=== PATIENT | female | born 1990 | race Caucasian/White ===

== ENCOUNTER 2016-08-04 21:27 | Inpatient (IN) ==
[2016-08-04 21:58] LABS: ALLEN TEST YES; BE -1.8 mmoll (-3.0-3.0); BLOOD TYPE ARTERIAL; DRAW SITE L RADIAL; METHB 1.4 % (0.0-1.5); O2(CT) 17.4 mL/dL (15.0-23.0); PCO2(98.6) 34 mmHg (35-45); PO2(98.6) 91 mmHg (60-100); SAMPLE BLOOD; SAO2 99.5 % (95.0-100.0); THB 12.8 g/dL (11.5-17.4); pH(98.6) 7.42 (7.35-7.45)
[2016-08-04 21:59] LABS: MODALITY ROOM AIR
[2016-08-04 22:43] LABS: MANUAL DIFF NEEDED? NO
--- NOTE | 2016-08-04 22:44 | PROVIDER DOCUMENTATION ---
HPI-Neurological Disorder - General Chief Complaint: Altered Mental Status Stated Complaint: SEIZURE Time Seen by Provider: 08/04/16 21:28 Source: patient Allergies/Adverse Reactions: Patient Allergies Allergy/AdvReac Type Severity Reaction Status Date / Time Penicillins AdvReac Unknown Verified 08/04/16 22:45 - History of Present Illness-Neuro Nature of Presenting Problem: Pt is a 26 y/o F brought to the ER by EMS for evaluation after she had a syncopal episode at work and awoke c paralysis to her LUE and LLE. Pt reports a R sided headache and is unsure if she hit her head. 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 Pt has a h/o narcolepsy and migraine headaches. Pt states that she remembers following the suspect then woke up on an ambulance gurney unable to move or feel her LUE and LLE. On arrival at the ER, pt is emotionally distraught and tearful. She was taken directly to CT for a CT head non-contrast and cervical spine. Dr. Suggs (ER MD) was made aware of pt's arrival and approved work up and plan of care for initial evaluation. Review of Systems - Adult - REVIEW OF SYSTEMS - ADULT Constitutional: reports: no symptoms reported. denies: chills, fatique Eyes: reports: no symptoms reported. denies: blurred vision, double vision Ears, Nose, Mouth & Throat: reports: no symptoms reported. denies: ear pain, nose pain, throat pain Cardiovascular: reports: no symptoms reported. denies: chest pain, orthopnea Respiratory: reports: no symptoms reported. denies: cough, shortness of breath Gastrointestinal: reports: no symptoms reported. denies: abdominal pain, nausea Genitourinary: reports: no symptoms reported. denies: dysuria, hematuria Musculoskeletal: reports: no symptoms reported. denies: joint pain, joint swelling Integumentary: reports: no symptoms reported. denies: hives, itching Neurological: reports: see HPI, headache/migraines, loss of balance, numbness, paresthesia, syncope Psychiatric: reports: no symptoms reported. denies: anxiety, emotional problems Endocrine: reports: no symptoms reported. denies: cold intolerance Hematologic/Lymphatic: reports: no symptoms reported. denies: blood clots, lymphedema Allergic/Immunologic: reports: no symptoms reported. denies: allergic reactions , food allergy, frequent infections All Other Systems: Reviewed and Negative Past History - Adult - PAST MEDICAL HISTORY-ADULT Review of Records: reports: Old Records Reviewed, Nursing Assessment Review, Medications Reviewed, Social history reviewed & non-contributory. Major Childhood Illnesses: reports: denies history Cardiovascular: reports: denies history Respiratory: reports: denies history Gastrointestinal: reports: denies history Obstetrical/Gynecological: reports: denies history Genitourinary: reports: denies history Musculoskeletal: reports: denies history Neurological: reports: denies history, other (narcolepsy) Psychiatric: reports: denies history Endocrine/Immune: reports: denies history Other Conditions: reports: denies history - PRIOR SURGERIES/PROCEDURES Surgical/Procedure History: reports: other (D&C) - IMMUNIZATION STATUS Childhood Immunizations: See Nurse Assessment Flu Vaccine: See Nurse Assessment - FAMILY HISTORY Family History: reviewed, not pertinent - SOCIAL HISTORY Smoking: denies Substance Use: none/never Alcohol Use Frequency: never Living Situation: family Physical Exam- Neurological - Physical Exam-Neuro Initial Vital Signs Reviewed: Yes General Appearance: alert, mild distress Eye Exam: bilateral eye: normal inspection, PERRL, EOMI HENMT: normocephalic/atraumatic, moist mucous membranes, normal ENT inspection Head Injury: tenderness (R parietal head). negative: Barragan's Sign, contusions , ecchymosis Neck: non-tender, full range of motion, supple Respiratory: chest non-tender, lungs clear, normal breath sounds Cardiovascular: normal peripheral pulses, regular rate, rhythm, no edema Abdominal Exam: normal bowel sounds, non tender, soft Lymphatic: no adenopathy Extremity: normal range of motion, non-tender, normal gait plate conditioner Exam: normal hearing, normal speech, PERRL. negative: abnormal speech, facial asymmetry, facial droop, facial paresthesias Motor/Sensory: weak motor strength LUE, weak motor strength LLE (drop arm test - pt was able to guide the direction of her arm dropping) Integumentary: normal color, normal turgor, warm/dry Psych/Mental Status: normal mood/affect, normal thought content, normal thought process - [place]ow Coma Scale Best Eye Response: (4) open spontaneously Best Verbal Response: (5) oriented Best Motor Response: (6) obeys commands Progress - PLAN OF CARE/RESULTS Progress/Plan/Lab Results: Vital Signs - 8 hr 08/04/16 21:35 08/05/16 00:23 Temperature 98.5 F Pulse Rate 68 100 H Respiratory Rate 16 22 Blood Pressure 141/87 132/81 O2 Sat by Pulse Oximetry 100 100 Laboratory Results - last 24 hr 08/04/16 08/04/16 08/04/16 21:31 22:10 22:10 WBC 8.34 RBC 4.58 Hgb 14.1 Hct 41.0 MCV 89.5 MCH 30.8 MCHC 34.4 RDW Std Deviation 12.3 Plt Count 235 MPV 9.2 Immature Gran % (Auto) 0.2 Neut % (Auto) 56.3 Lymph % (Auto) 33.3 [place] % (Auto) 9.5 H Eos % (Auto) 0.5 Baso % (Auto) 0.2 Immature Gran # (Auto) 0.02 Neut # (Auto) 4.69 Lymph # (Auto) 2.78 [place] # (Auto) 0.79 H Eos # (Auto) 0.04 Baso # (Auto) 0.02 PT INR PTT (Actin FS) Specimen Type ARTERIAL Sample Site L RADIAL pH 7.42 pCO2 34 L pO2 91 HCO3 23.5 Base Excess -1.8 Oxyhemoglobin 96.4 ABG O2 Sat (Calculated) 17.4 ABG O2 Saturation 99.5 ABG Carboxyhemoglobin 1.70 ABG Methemoglobin 1.4 Adolfo Test YES A-a O2 Difference 16.0 Total Hemoglobin 12.8 Lactate 0.80 Liter Flow 0.0 Blood Gas Modality ROOM AIR FiO2 % 21.0 Sodium Potassium Chloride Carbon Dioxide Anion Gap BUN Creatinine Estimated GFR/1.73 m2 BUN/Creatinine Ratio Glucose POC Glucose Calculated Osmolality Calcium Total Bilirubin AST ALT Alkaline Phosphatase Creatine Kinase Troponin T Total Protein Albumin Globulin Albumin/Globulin Ratio Plasma Lactate Urine Source Urine Color Urine Turbidity Urine pH Ur Specific [place] Urine Protein Ur Glucose (Stick) Ur Ketones (Stick) Urine Blood Urine Nitrite Urine Bilirubin Urobilinogen Dipstick Urine Leukocytes Urine WBC (Auto) Urine RBC (Auto) U Epithel Cells (Auto) Urine Bacteria (Auto) Urine Opiates Screen Ur Oxycodone Screen Ur Methadone, Qual Ur Barbiturates Screen Ur Phencyclidine Scrn Ur Amphetamines Screen U Benzodiazepines Scrn Urine Cocaine Screen U Cannabinoids Screen Plasma/Serum Ethyl Alc 08/04/16 08/04/16 08/04/16 22:10 22:10 22:10 WBC RBC Hgb Hct MCV MCH MCHC RDW Std Deviation Plt Count MPV Immature Gran % (Auto) Neut % (Auto) Lymph % (Auto) [place] % (Auto) Eos % (Auto) Baso % (Auto) Immature Gran # (Auto) Neut # (Auto) Lymph # (Auto) [place] # (Auto) Eos # (Auto) Baso # (Auto) PT 10.9 INR 1.04 PTT (Actin FS) 28.0 Specimen Type Sample Site pH pCO2 pO2 HCO3 Base Excess Oxyhemoglobin ABG O2 Sat (Calculated) ABG O2 Saturation ABG Carboxyhemoglobin ABG Methemoglobin Adolfo Test A-a O2 Difference Total Hemoglobin Lactate Liter Flow Blood Gas Modality FiO2 % Sodium 140 Potassium 3.7 Chloride 103 Carbon Dioxide 21 L Anion Gap 16 BUN 11 Creatinine 0.8 Estimated GFR/1.73 m2 > 60 BUN/Creatinine Ratio 14 Glucose 83 POC Glucose Calculated Osmolality 278 Calcium 9.3 Total Bilirubin 0.34 AST 12 ALT 9 L Alkaline Phosphatase 71 Creatine Kinase 55 Troponin T Total Protein 7.0 Albumin 4.1 Globulin 2.9 Albumin/Globulin Ratio 1.4 Plasma Lactate 1.4 Urine Source Urine Color Urine Turbidity Urine pH Ur Specific [place] Urine Protein Ur Glucose (Stick) Ur Ketones (Stick) Urine Blood Urine Nitrite Urine Bilirubin Urobilinogen Dipstick Urine Leukocytes Urine WBC (Auto) Urine RBC (Auto) U Epithel Cells (Auto) Urine Bacteria (Auto) Urine Opiates Screen Ur Oxycodone Screen Ur Methadone, Qual Ur Barbiturates Screen Ur Phencyclidine Scrn Ur Amphetamines Screen U Benzodiazepines Scrn Urine Cocaine Screen U Cannabinoids Screen Plasma/Serum Ethyl Alc 08/04/16 08/04/16 08/04/16 22:10 22:13 22:45 WBC RBC Hgb Hct MCV MCH MCHC RDW Std Deviation Plt Count MPV Immature Gran % (Auto) Neut % (Auto) Lymph % (Auto) [place] % (Auto) Eos % (Auto) Baso % (Auto) Immature Gran # (Auto) Neut # (Auto) Lymph # (Auto) [place] # (Auto) Eos # (Auto) Baso # (Auto) PT INR PTT (Actin FS) Specimen Type Sample Site pH pCO2 pO2 HCO3 Base Excess Oxyhemoglobin ABG O2 Sat (Calculated) ABG O2 Saturation ABG Carboxyhemoglobin ABG Methemoglobin Adolfo Test A-a O2 Difference Total Hemoglobin Lactate Liter Flow Blood Gas Modality FiO2 % Sodium Potassium Chloride Carbon Dioxide Anion Gap BUN Creatinine Estimated GFR/1.73 m2 BUN/Creatinine Ratio Glucose POC Glucose 68 L Calculated Osmolality Calcium Total Bilirubin AST ALT Alkaline Phosphatase Creatine Kinase Troponin T < 0.010 Total Protein Albumin Globulin Albumin/Globulin Ratio Plasma Lactate Urine Source CLEAN CATCH Urine Color STRAW Urine Turbidity CLEAR Urine pH 6.0 Ur Specific [place] 1.001 Urine Protein NEGATIVE Ur Glucose (Stick) NEGATIVE Ur Ketones (Stick) NEGATIVE Urine Blood NEGATIVE Urine Nitrite NEGATIVE Urine Bilirubin NEGATIVE Urobilinogen Dipstick NORMAL Urine Leukocytes NEGATIVE Urine WBC (Auto) <10 Urine RBC (Auto) <10 U Epithel Cells (Auto) <10 Urine Bacteria (Auto) NEGATIVE Urine Opiates Screen Ur Oxycodone Screen Ur Methadone, Qual Ur Barbiturates Screen Ur Phencyclidine Scrn Ur Amphetamines Screen U Benzodiazepines Scrn Urine Cocaine Screen U Cannabinoids Screen Plasma/Serum Ethyl Alc 08/04/16 22:45 WBC RBC Hgb Hct MCV MCH MCHC RDW Std Deviation Plt Count MPV Immature Gran % (Auto) Neut % (Auto) Lymph % (Auto) [place] % (Auto) Eos % (Auto) Baso % (Auto) Immature Gran # (Auto) Neut # (Auto) Lymph # (Auto) [place] # (Auto) Eos # (Auto) Baso # (Auto) PT INR PTT (Actin FS) Specimen Type Sample Site pH pCO2 pO2 HCO3 Base Excess Oxyhemoglobin ABG O2 Sat (Calculated) ABG O2 Saturation ABG Carboxyhemoglobin ABG Methemoglobin Adolfo Test A-a O2 Difference Total Hemoglobin Lactate Liter Flow Blood Gas Modality FiO2 % Sodium Potassium Chloride Carbon Dioxide Anion Gap BUN Creatinine Estimated GFR/1.73 m2 BUN/Creatinine Ratio Glucose POC Glucose Calculated Osmolality Calcium Total Bilirubin AST ALT Alkaline Phosphatase Creatine Kinase Troponin T Total Protein Albumin Globulin Albumin/Globulin Ratio Plasma Lactate Urine Source Urine Color Urine Turbidity Urine pH Ur Specific [place] Urine Protein Ur Glucose (Stick) Ur Ketones (Stick) Urine Blood Urine Nitrite Urine Bilirubin Urobilinogen Dipstick Urine Leukocytes Urine WBC (Auto) Urine RBC (Auto) U Epithel Cells (Auto) Urine Bacteria (Auto) Urine Opiates Screen NONE DETECTED Ur Oxycodone Screen NONE DETECTED Ur Methadone, Qual NONE DETECTED Ur Barbiturates Screen NONE DETECTED Ur Phencyclidine Scrn NONE DETECTED Ur Amphetamines Screen NONE DETECTED U Benzodiazepines Scrn NONE DETECTED Urine Cocaine Screen NONE DETECTED U Cannabinoids Screen NONE DETECTED Plasma/Serum Ethyl Alc Orders Category Date Time Status Cardiac Monitoring DIRECTED Care 08/04/16 21:31 Active Finger Stick Blood Sugar (ED) DIRECTED Care 08/04/16 21:31 Active Oxygen Therapy- ED Nursing DIRECTED Care 08/04/16 21:31 Active Saline Loc NOW Care 08/04/16 21:31 Active CHEST-PORTABLE [RAD] Stat Exams 08/04/16 21:31 Taken HEAD/C-SPINE W/O CONTRAST [CT] Stat Exams 08/04/16 21:31 Taken ABG [RESP] Routine Lab 08/04/16 21:31 Completed ALCOHOL BLOOD Stat Lab 08/04/16 22:10 Completed CBC WITH ELECTRONIC DIFF [HEME] Stat Lab 08/04/16 22:10 Completed CK PROFILE [SP CHEM] Stat Lab 08/04/16 22:10 Completed COMPREHENSIVE METABOLIC PANEL [CHEM] Stat Lab 08/04/16 22:10 Completed LACTATE, PLASMA [CHEM] Stat Lab 08/04/16 22:10 Completed PROTIME WITH INR [COAG] Stat Lab 08/04/16 22:10 Completed PTT [COAG] Stat Lab 08/04/16 22:10 Completed TROPONIN T Stat Lab 08/04/16 22:10 Completed URINALYSIS W/POSS RFLX CULT-1 [URINALYSIS] Stat Lab 08/04/16 22:45 Completed URINE DRUG SCREEN Stat Lab 08/04/16 22:45 Completed Aspirin Med 08/05/16 00:00 Discontinued 325 mg PO NOW ONE Diphenhydramine [Benadryl] Med 08/04/16 23:41 Discontinued 25 mg IV NOW ONE Prochlorperazine [Compazine] Med 08/04/16 23:41 Discontinued 10 mg IV NOW ONE Pulse Oximetry Stat Oth 08/04/16 21:31 Active EKG [EKG] Stat Ther 08/04/16 21:31 Ordered Result Diagrams: 08/04/16 22:10 08/04/16 22:10 - REASSESSMENT Reassessment #1 Time Reassessed: 23:43 (Dr. Suggs at bedside after reviewing imaging studies and labs. He examined pt and ordered compazine and benadryl to treat R sided headache. Plan to txfr to for MRI and neuro support. ) Reassessment #2 Time Reassessed: 00:01 (Presented pt to Dr. Qureshi ( Neurology), Dr. Suggs was at bedside c critical unstable pt. Relayed information to Dr. Suggs who agreed c plan to admit pt to hospitalist. ) Reassessment #3 Time Reassessed: 00:40 (Updated pt on plan of care. Pt and agree c admission. Pt states that her headache is resolved. ) - CONSULTS/PCP/HOSPITALIST Notification #1 *Consult/PCP/Hospitalist*: Dr. Qureshi ( Neurology) Time Discussed: 00:01 (Recommended admission to hospital and observation over night c MRI in the morning. Recommended not transferring the pt to . ) #2 Consult: Dr. Katz (Hospitalist) Time Discussed: 00:07 Reason/Comments: Will accept pt and see in the ER. Departure - Departure Time of Disposition Decision: 00:07 DIAGNOSIS: Stroke-like symptoms Disposition: ADMITTED INPATIENT 09 Certified Medical Emergency: Emergent Condition: Stable Referrals and Follow-Ups: None,PCP [Primary Care Provider] - Attestation - Physician/ DAVID Attestation Patient care was provided by Advanced Practice Provider:: Yes Advanced Practice Provider:: Alden Borrego Advanced Practice Provider documentation review:: The Mid-level provider documentation, treatment plan and medical decision making was reviewed by the physician who agrees with all treatment and medical decision making by the MLP. The physician spent face to face time with patient:: Yes Advanced Practice Provider documentation review:: The physician spent face to face time with this patient and agrees with all MLP documentation, treatment, and medical decision making by the MLP. See provider notes for further information. - NIH Stroke Scale NIH Type: Initial Evaluation Level of Consciousness: 0-Alert LOC Questions (ask month and age): 0-Answers Both Correctly Best Gaze (horizontal eye movement): 0-Normal Visual (use finger movement, counting or visual threat): 0-No Visual Loss Facial Palsy (show teeth or raise eyebrows & close eyes tght: 0-Symmetrical Movement Motor Function-left arm: 4-No Movement Motor Function-right arm: 0-Normal Motor Function-left le-No Movement Motor Function-right le-Normal Limb Ataxia(sgbdvy-ddui-strhat, or heel to carvajal): 0-No Ataxia Sensory(pin prick to face,arms,trunk,legs-compare side/side): 0-No Ataxia Best Language(name item/read sentence.Ex-Down to Earth): 0-No Aphasia Dysarthria(Pt read words or say words Ex.Mama,Tip-Top,Thanks: 0-Normal Articulation Modified [place] Score Criteria: 3-moderate disability
[2016-08-04 22:48] LABS: BASO% 0.2 % (0.0-0.8); EOS# 0.04 X1000 (0.0-0.7); EOS% 0.5 % (0.0-10.0); HEMOGLOBIN 14.1 g/dL (12.0-16.0); IMM GRAN# 0.02 X1000 (0.0-0.04); IMM GRAN% 0.2 % (0.0-0.5); LYMPH# 2.78 X1000 (1.2-3.4); LYMPH% 33.3 % (20.5-51.1); MCH 30.8 PG (27-31); MCHC 34.4 g/dL (33-37); MCV 89.5 FL (81-99); MONO# 0.79 X1000 (0.11-0.59); MONO% 9.5 % (1.7-9.3); MPV 9.2 FL (7.4-10.4); NEUT% 56.3 % (42.2-75.2); PLT 235 X1000 (130-400); RBC 4.58 XMIL (4.2-5.4)
[2016-08-04 23:02] LABS: INR 1.04; PROTIME 10.9 Seconds (9.2-11.7)
[2016-08-04 23:06] LABS: AGAP 16; ALBUMIN 4.1 g/dL (3.5-5.0); ALKALINE PHOSPHATASE 71 U/L (32-104); BUN 11 mg/dL (8-22); CALCIUM 9.3 mg/dL (8.8-10.2); CHLORIDE 103 mmol/L (98-107); CK PROFILE 55 U/L (24-173); COSMO 278; GOT 12 U/L (10-30); GPT 9 U/L (10-36); POTASSIUM 3.7 mmol/L (3.5-5.1); SODIUM 140 mmol/L (136-145); TCO2 21 mmol/L (25-35); TOTAL BILIRUBIN 0.34 mg/dL (0.20-1.00)
[2016-08-04 23:13] LABS: URINE CULTURE NEEDED? NO; URINE MICRO REVIEW NEEDED? NO; URINE SOURCE CLEAN CATCH
[2016-08-04 23:16] LABS: BILIRUBIN URINE NEGATIVE (NEGATIVE); BLOOD URINE NEGATIVE (NEGATIVE); COLOR STRAW; GLUCOSE URINE NEGATIVE (NEGATIVE); LEUKOCYTES URINE NEGATIVE (NEGATIVE); NITRITE URINE NEGATIVE (NEGATIVE); PROTEIN URINE NEGATIVE (NEGATIVE); SP GRAVITY URINE 1.001; TURBIDITY URINE CLEAR (CLEAR); UROBILINOGEN URINE NORMAL (NORMAL)
[2016-08-04 23:18] LABS: UR EPITHELIAL CELLS <10 /HPF (<10); URINE BACTERIA NEGATIVE /HPF; URINE RBC <10 /HPF (<10); URINE WBC <10 /HPF (<10)
[2016-08-04 23:25] LABS: UR AMPHETAMINES QUAL NONE DETECTED (NONE DETECT); UR BARBITUATES QUAL NONE DETECTED (NONE DETECT); UR BENZODIAZEPIN QUAL NONE DETECTED (NONE DETECT); UR CANNABINOIDS QUAL NONE DETECTED (NONE DETECT); UR COCAINE QUAL NONE DETECTED (NONE DETECT); UR METHADONE QUAL NONE DETECTED (NONE DETECT); UR OPIATES QUAL NONE DETECTED (NONE DETECT); UR OXYCODONE QUAL NONE DETECTED (NONE DETECT); UR PCP QUAL NONE DETECTED (NONE DETECT)
[2016-08-04] MEDS ORDERED: BENADRYL IV ONE (23:41)
[2016-08-04] MEDS ORDERED: COMPAZINE IV ONE (23:41)
[2016-08-05] MEDS ORDERED: ASPIRIN PO ONE
--- NOTE | 2016-08-05 05:05 | EKG Report ---
Test Performed on : 08/04/2016 10:50:25 PM Test Reason : SEIZURE Blood Pressure : / mmHG Vent. Rate : 058 BPM Atrial Rate : 058 BPM P-R Int : 180 ms QRS Dur : 076 ms QT Int : 420 ms P-R-T Axes : 059 090 031 degrees QTc Int : 412 ms Sinus bradycardia. Rightward axis Cannot rule out Anterior infarct , age undetermined Abnormal ECG No previous ECGs available Unconfirmed Result
[2016-08-05] MEDS ORDERED: COMPAZINE IV PRN (06:39)
[2016-08-05 07:38] LABS: MANUAL DIFF NEEDED? NO
[2016-08-05 07:43] LABS: BASO% 0.2 % (0.0-0.8); EOS# 0.04 X1000 (0.0-0.7); EOS% 0.6 % (0.0-10.0); HEMATOCRIT 39.5 % (37.0-47.0); HEMOGLOBIN 13.4 g/dL (12.0-16.0); LYMPH# 2.13 X1000 (1.2-3.4); LYMPH% 34.3 % (20.5-51.1); MCH 30.7 PG (27-31); MCHC 33.9 g/dL (33-37); MCV 90.4 FL (81-99); MONO# 0.51 X1000 (0.11-0.59); MONO% 8.2 % (1.7-9.3); NEUT% 56.7 % (42.2-75.2); PLT 223 X1000 (130-400); RBC 4.37 XMIL (4.2-5.4)
[2016-08-05 08:09] LABS: AGAP 12; BUN 10 mg/dL (8-22); CALCIUM 8.9 mg/dL (8.8-10.2); CHLORIDE 101 mmol/L (98-107); COSMO 274; POTASSIUM 4.2 mmol/L (3.5-5.1); SODIUM 138 mmol/L (136-145); TCO2 25 mmol/L (25-35)
--- NOTE | 2016-08-05 08:23 | Diag Imaging Result Document ---
PROCEDURE NAME: CHEST-PORTABLE - 08/04/2016 SINGLE FRONTAL RADIOGRAPH OF THE CHEST: COMPARISON: None available. FINDINGS: The lungs are grossly clear. There is no discrete pleural fluid collection or evidence of pneumothorax. The cardiomediastinal silhouette and upper airway are grossly unremarkable. IMPRESSION: No evidence of acute chest pathology.
--- NOTE | 2016-08-05 08:49 | Diag Imaging Result Document ---
PROCEDURE NAME: HEAD/C-SPINE W/O CONTRAST - 08/04/2016 CT OF THE HEAD WITHOUT CONTRAST: FINDINGS: There is no evidence of mass effect, bleed, or abnormal extra-axial fluid collection. Compared to 09/28/2015, the appearance of the brain has not changed significantly. The visualized paranasal sinuses are clear. The calvarium is intact. IMPRESSION: No acute intracranial disease. CT OF THE CERVICAL SPINE WITHOUT CONTRAST: There is no evidence of fracture or subluxation. There are no previous studies available for comparison. The facets are well aligned. There is no prevertebral soft tissue swelling. IMPRESSION: No evidence of acute bony disease.
--- NOTE | 2016-08-05 10:56 | HISTORY AND PHYSICAL ---
PRIMARY CARE PHYSICIAN: The patient reports that she does not have a primary care provider at this time and uses urgent care when needed. PSYCHIATRIST: The patient's psychiatrist is Dr. Stark. TIME: 99. CHIEF COMPLAINT: Altered mental status. HISTORY OF PRESENT ILLNESS: Ms. Lovell is a 26-year-old, female with a past medical history most notable for depression, migraines, narcolepsy, and seizures as a child. She presented to the ER [facility] with altered mental status after having a syncopal episode at work. The patient states that prior to this syncopal episode that she woke up with a headache this morning. She reports that the headache is on the right side of her head. She also reported that throughout the day that she noticed that when she would turn her head to the left or the right, she would have loss of vision for just a second or two. She also reported that she felt a tingly type feeling throughout her head as well. 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 Patient reports that she does not remember anything after her syncopal episode. The 1st thing she remembers is waking up in the ambulance. Upon our examination, she was alert, oriented to person, place, time, and situation. The patient also is having symptoms of paralysis in the left upper extremity and left lower extremity. Upon arrival to the ER, the patient was unable to move her left arm or left leg, and reported numbness and tingling in these 2 extremities as well. Upon our examination, the patient has regained some movement. She is able to move her arm slightly, wiggle her fingers, as well as wiggle her toes. She does still report some tingling and decreased sensation. She denies any visual changes at present. There is no facial droop noted. Her speech is clear. She is able to answer questions appropriately, though she does have weakness in the left upper extremity and left lower extremity. The patient denies any recent new medications or changes in her medications, though does report that she normally takes Lexapro every day for depression and has been out of this for the last 3 days. She also states that she takes trazodone at night for sleep, Klonopin as needed, and a control pill. The patient does report that she had seizures as a child but her last seizure was at age 10. She did report that she does have frequent migraines, though did state that the headache that she woke up with this morning, that she had all day prior to her syncopal episode, was different from her normal migraines. A CT head and C-spine was performed in the ER. It was negative for any acute abnormality or injuries per radiologist. At this time, we will admit the patient for further treatment and evaluation of her syncopal episode and possible complex migraine. REVIEW OF SYSTEMS: A 12 point review of systems was conducted with the patient. All were negative except for pertinent positives mentioned above in the HPI. PAST MEDICAL HISTORY: 1. Seizures as a child with last seizure noted at age 10. 2. Narcolepsy. 3. Depression. 4. Anxiety. PAST SURGICAL HISTORY: 1. Cholecystectomy. 2. Tonsillectomy and adenoidectomy. 3. Left hip surgery. 4. D and C. SOCIAL HISTORY: The patient denies any past or present tobacco or illicit drug use, though does report occasional alcohol use. 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 FAMILY HISTORY: Patient denies her father having any medical problems. She does report that she thinks her mother has a history of diabetes mellitus. ALLERGIES: Patient reports an allergy to penicillin. HOME MEDICATIONS: At this time, the patient was not able to confirm the dosages of her medications but was able to tell me that she takes Lexapro, trazodone at night, a control pill, and Klonopin. DIAGNOSTIC DATA: Laboratory results: Her white blood cell count was 8.3, hemoglobin 14.1, hematocrit 41, platelet count is 235,000. PT 10.9, INR 1.04, PTT is 28. Sodium 140, potassium 3.7, chloride 103, bicarb 21, BUN 11, creatinine 0.8, glucose 83, calcium 9.3. Liver function tests are within normal limits. CK 55, troponin less than 0.01. Plasma lactate 1.4. Arterial blood gases were obtained on room air with a pH of 7.42, pCO2 34, PO2 91, HCO3 was 23.5, with a base excess of -1.8, O2 saturation was 99.5. Urinalysis was obtained via clean catch and was within normal limits. No protein, glucose, ketones, blood, nitrites, leukocytes , or bacteria noted. Urine drug screen was negative. Serum alcohol was 0. EKG showed sinus bradycardia at a rate of 58 with a QTc of 412. A CT of the head and C-spine noncontrast showed no acute abnormality or injury per the radiologist. Chest x-ray shows no acute abnormalities, though we are awaiting the official radiology read. Patient was given a dose of Compazine and Benadryl in the ER, as well as an aspirin 325 mg. She does state that at this time her headache has improved. PHYSICAL EXAMINATION: VITAL SIGNS: Temperature 98.2 degrees, heart rate 78, respirations 16, blood pressure 111/60, oxygen saturation is 99% on room air. GENERAL: Ms. Lovell is a pleasant, 26-year-old, female who is resting on the ER stretcher. She was in no acute distress. She was awake, alert, and able to answer all questions appropriately. HEENT: Head is atraumatic, normocephalic. Pupils are equal, round, reactive to light, were 3 mm bilaterally and brisk. EOMs were intact. No facial droop noted. Oral mucosa was moist. Oropharynx was clear. NECK: Supple. Trachea midline. No carotid bruits noted upon auscultation bilaterally. CARDIOVASCULAR: Patient has normal S1, S2. No murmurs, gallops, or rubs appreciated with a regular rate and rhythm. PULMONARY: Patient has symmetrical chest expansion bilaterally. Lung sounds are clear to auscultation in bilateral full juares. ABDOMEN: Soft, nontender, nondistended. Bowel sounds were present in all 4 quadrants. EXTREMITIES: No cyanosis, clubbing, or edema noted. Pedal pulses were 3+ bilaterally. INTEGUMENTARY: The patient's skin is pink, warm, dry, and intact. No lesions or sores noted. NEUROLOGICAL: The patient is alert, oriented to person, place, time, and situation. Upon our examination, the patient is now able to move her left arm some as well as wiggle her fingers on her left hand. She is also able to wiggle her toes on her left foot. She does still report some tingling and reports a decreased sensation in her left upper extremity and left lower extremity compared to the right. ASSESSMENT AND PLAN: 1. Possible complex migraine. At this time, the patient's neurological symptoms seem to be slowly improving since she has went from an initial complaint of not being able to move her left arm or left leg at all to where now she is regaining movement and improved sensation. CT of the head was negative, though to rule out any further neurological involvement, we have ordered an MRI with and without contrast in the morning and have placed a consult with Dr. Alexander for his evaluation and further recommendations. We also did place orders for Tylenol and Compazine as needed for headache and nausea. We will do every 4 hour neurological checks. She will be placed on seizure precautions and aspiration precautions as well. 2. Syncopal episode. This is of uncertain etiology. The patient does have a history of seizures, though states that her last known seizure was at age 10. As previously mentioned in #1, we have placed a consult with Dr. Alexander for his evaluation and further recommendations. The patient's cardiac status at this time appears to be stable. Electrocardiogram showed no acute findings. Cardiac enzymes were negative and she had stable vital signs. We will place her on telemetry and monitor her cardiovascular status closely. 3. Depression. Once the patient's home medication list has been updated, we will continue her Lexapro. The patient was placed on the medical floor with telemetry. She will have vital signs every 8. Deep venous thrombosis will be provided with sequential compression devices. We will repeat a BMP and CBC in the morning. She will be on a regular diet. Further orders and recommendations pending hospital course, diagnostic studies, and physician evaluation. Dictated by ELMO Boyd for Jb Katz MD Pt seen and examined and plan above was discussed with AMMONIA STILL OPERATOR. cc: Jb Katz MD [facility]
[2016-08-05] MEDS: TYLENOL PO PRN ×2 (11:15→22:21)
--- NOTE | 2016-08-05 14:39 | CONSULTATION ---
DATE OF CONSULTATION: 08/05/2016 HISTORY OF PRESENT ILLNESS: Ms. Lovell is 26 years old and she had some sort of spell yesterday. She remembers rushing at her workplace, feeling odd, next realizing there was a gap in her memory and paramedics were checking on her. She had a little bit of headache. She noticed weakness and numbness in the left limbs. She believes the left-sided deficit resolved overnight. Her headache is improved today. She reports history of "seizures" occurring about 4 times around age 9 and 10. She remembers being prescribed some medicine, which she took for few months and then stopped that on family's advice. She does not remember the name of the medicine. She recalls 1 of those childhood episodes started just after she received an injection at the doctor's office. Another episode started with tunnel vision. She recalls being immediately alert and aware after these previous spells resolved. These previous spells were not associated with left-sided symptoms or other focal neurologic feature. She believes that she bumped her head yesterday. Otherwise, she has not had serious head injury. She has never had diagnosed stroke. DIAGNOSTIC DATA: Workup here includes noncontrast CT of the head unremarkable, noncontrast CT of the cervical spine unremarkable, lab showing blood sugar 68, nothing else remarkable. Urine drug screen was all negative. She has been afebrile. Blood pressure ranged 140s down to 102 systolic. Heart rate was 100 around midnight, but mostly 60s to 70s otherwise. NEUROLOGIC EXAMINATION: On examination now, she is awake, alert, attentive, appropriate, oriented. Speech is not dysarthric. Language function is intact. Head and neck are unremarkable. Visual juares are full, tested by confrontational finger counting. Extraocular movements are full. Pupils react to light. Facial motility is symmetric. Facial sensation is intact to pinprick and light touch testing. Gag is intact. Tongue is midline. Hearing is good. Shoulder shrug is equal. Strength is normal in the right limbs. She has some fluctuating effort when testing the left limbs, but there is no reproducible deficit. With distraction and repeated testing, I believe she has equal power in the left and right limbs. Tone is equal in the left and right limbs. She did well on [id number] testing bilaterally. She reports diminished pinprick and light touch appreciation over the left limbs compared to the right, with some indistinct margins. Proprioception is good. I did not test her gait. Reflexes are symmetric, grading 2+ at the knees and ankles, 1+ at the wrists. IMPRESSION: Episode yesterday, uncertain etiology. The memory gap is consistent with seizure, but I do not find anything more definite. I do not find a definite focal neurologic deficit. I do not see evidence of increased intracranial pressure. Possible childhood seizure history is noted, but I think that is not certain, either. She has a brain MRI ordered and if that is unremarkable, I think EEG would be reasonable next step. I do not have any other suggestions now. Thanks for asking me to see Ms. Lovell. cc: MD RILEY Holcomb III
--- NOTE | 2016-08-05 14:53 | PROGRESS NOTE ---
DATE: 08/05/2016 SUBJECTIVE: The patient reports she does not have a primary care physician and uses urgent care when needed. She has a psychiatrist named but apparently came in with a seizure and altered mental status. A 26-year-old with past medical history notable for depression, migraines, narcolepsy, seizures as a child. She presented to the emergency room with altered mental status and having syncopal episode at work. The patient states that prior to the syncopal episode she woke up with a headache in the morning. Reported that the headache was on the right side of her head. Reports that throughout the day she noted if she would turn her head to the left and to the right she would have loss of vision for just a second or 2. Then she reports she felt a tingly- type feeling in her head. 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 States that she may have had seizures. She thinks she did as a child at 1 point, may have been on some medication, not sure. The patient was having symptoms of paralysis of the left upper extremity and left lower extremity, which have resolved. Upon arrival to the emergency room, unable to move her left arm and left leg, and reported numbness and tingling in these 2 extremities, as well. She regained movement, able to move her arm slightly, wiggle her fingers as well as wiggle her toes. She had some tingling and felt like she has some decreased sensation, apparently, on presentation. Denied any visual change during the examination, but did have weakness in left upper extremity and left lower extremity. Denies any recent changes in medication. She only takes Lexapro every day for depression and has been out of this for about 3 days. States that she takes trazodone at night for sleep, Klonopin as needed, and a control pill. She reports she had seizures when she was a child. The last seizure was over 10 years ago. She does have frequent migraines and did state that she had a headache when she woke up this morning. PHYSICAL EXAMINATION: General: On examination today, awake, alert, pleasant, and oriented x3. I do not brass pickler any focal neurologic deficits in motor or sensory at this point. Vital Signs: Temperature 98.6 degrees, pulse 70, respirations 15, blood pressure 102/73. Weight 160 pounds. HEENT: Pupils are equal and round. Lungs: Clear in all lung juares. Cardiovascular: Regular rhythm and rate, without murmur or S3. Abdomen: Soft. Skin: Warm and dry. LABORATORY AND IMAGING: White count 6210, hematocrit 39, platelet count 223,000. Sodium 138, potassium 4.2, chloride 101, bicarbonate 25, BUN 10, creatinine 0.8, liver functions unremarkable. Albumin 4.1. Prothrombin time 10.9. PTT was 28. Urinalysis unremarkable. Urine drug screen was completely negative. Blood gases when she arrived: pH was 7.42, pCO2 of 34, PO2 of 91, and O2 saturation was 96%. Chest x-ray on presentation: No evidence of acute chest pathology. CT of the head and cervical spine: No evidence of any acute pathology or bony disease. ASSESSMENT AND PLAN: 1. Possible complex migraine headache. New seizure event, it sounds like from history. Dr. Alexander to evaluate. Will get MRI of the head. May get an EEG. I do not see any metabolic concerns at the present. No recent change in medications, although she was out of Lexapro for the last 3 days. 2. Syncopal episode. Suspect this is related to the seizure. 3. History of depression. 4. History of narcolepsy. cc: Adolfo Craig MD
--- NOTE | 2016-08-05 15:16 | Diag Imaging Result Document ---
PROCEDURE NAME: MRI BRAIN W W/O CONTRAST - 08/05/2016 MRI OF THE BRAIN WITH AND WITHOUT GADOLINIUM: FINDINGS: There is no evidence of mass effect, bleed, or abnormal extra-axial fluid collection. There is no evidence of restricted diffusion. No abnormal gadolinium enhancement is present. IMPRESSION: No evidence of acute intracranial disease.
--- NOTE | 2016-08-05 19:28 | EEG REPORT ---
DATE: 08/05/2016 This is EEG #10,000. COMMENT: This is a digitally recorded EEG on a 26-year-old patient with recent period of altered awareness, memory gap, question of seizure. FINDINGS: During waking, medium and higher amplitude 8-9 Hz posterior rhythm is present symmetrically and reacts normally to eye opening. Background contains polymorphic and rhythmic theta frequencies over the frontal and central regions symmetrically. Drowsing occurred briefly with appearance of more generalized slowing and attenuation of the posterior rhythm. Stage 2 sleep was not recorded. Photic stimulation did not significantly alter the record. Hyperventilation with good effort did not alter the record. No definite epileptiform discharge was identified. INTERPRETATION: Normal EEG. CORRELATION: The absence of epileptiform discharges on a single EEG does not exclude a clinical diagnosis of seizures, but there is nothing on this record to suggest the presence of a seizure disorder. cc: Alina Alexander III, MD
--- NOTE | 2016-08-06 05:33 | ED EKG INTERP ---
This chart was entered by Jeff Ventura Scribe, acting as scribe for Clint Suggs MD. EKG Interpretation - EKG Time of EKG reading by physician:: 22:50 EKG Read and Signed by:: Clint Suggs EKG Interpretation (*Must complete 3 of following elements*): Abnormal ( Rightward axis; Poor R wave progression) Rate: 58 Rhythm: Sinus bradycardia This chart was documented by the indicated scribe, (Jeff Ventura Scribe) and accurately reflects the services I performed and decisions made by me, Clint Pelletier MD, as attested by the provider's signature.
[2016-08-06 07:52] VITALS: BP 120/71
[2016-08-06] MEDS: TYLENOL PO PRN (09:35)
--- NOTE | 2016-08-07 04:43 | DISCHARGE SUMMARY ---
ADMISSION DATE: 08/05/2016 DISCHARGE DATE: 08/06/2016 HISTORY AND HOSPITAL COURSE: The patient reports she does not have any primary care provider. Her psychiatrist is Dr. Hdz. She came in with altered mental status. She is 26-year-old female with a past medical history most notable for depression, migraine, narcolepsy, and possible seizures as a child. She presented to the emergency room on the evening of 08/05/2016 with altered mental status, after having a syncopal episode at work. Patient reports that prior to the syncopal episode, she woke up and had a headache, and has had one throughout the day. Notes that when she would turn her head to the left and the right, she would feel like she had a little bit of loss of vision for a second or two. She also noticed she felt a tingly-type feeling to her head as well. Patient currently works at [employer] at [email or web address]. Walking through the store, following a potential shoplifting, and suddenly lost consciousness, and hit her head on the checkout stand. The patient reports that she does not remember anything after the syncopal episode. The first thing she remembers is walking to the ambulance and having symptoms of paralysis in the left upper extremity and left lower extremity. Upon arrival in the ER, patient was unable to move her left arm and left leg, and reported numbness and tingling in these 2 extremities as well. On her examination, patient was bringing some movement, was able to move her arms slightly, wiggle her fingers, as well as wiggle her toes. She did report while seen in the emergency room still some tingling and decreased sensation. Denied any visual changes at present. No facial droop noted. Her speech was clear. Able to answer questions appropriately, though she does have weakness in her left upper extremity and left lower extremity. On exam, the patient denies any recent new medication changes or changes in any over the counter medications. She does report only taking Lexapro every day for depression, and been out of this for the last 3 days. States she has takes trazodone at night for sleep, Klonopin as needed as needed, and a control pill. Patient does report that she had seizures as a child. Her last seizure was at age 10. She did report that she does have frequent migraines, though she states that the headache that she woke up with this morning she had all day prior to her syncopal episode, and had prior to her syncopal episode, was different from her normal migraines. CT of the head and CT of the spine was performed in the ER, was negative for any acute abnormality. Past medical history: Questionable seizures as a child, noted at age 10. She is not sure about this. I am not sure she took any medication. Narcolepsy, depression, anxiety. Her surgical history is status post cholecystectomy. Electrolytes and labs were really unremarkable. Blood sugars looked good. Dr. Alexander was consulted. He felt that the episode of syncope was uncertain. The etiology and memory gap was consistent with seizure, but did not find anything more definite, did not find any definite neurologic deficit, and no evidence of increased intracranial pressure. She possibly had a childhood seizure in the past, so EEG was performed, and a brain MRI on the . No evidence on the brain MRI of any intracranial process. EEG did not show any epileptiform discharges. The patient wanted to leave the hospital. Really did not feel we had any good evidence to start her on seizure medications. Encouraged her to get some followup with the neurologist, and encouraged her to get a primary care doctor, but she left the hospital AMA on 08/06/2016, and she is going to take her medications as before, clonazepam 0.5 mg daily p.r.n., sometimes twice a day p.r.n., Lexapro 20 mg a day, which she has been off of since she ran out, and trazodone 100 mg at bedtime. cc: Adolfo Craig MD
== END 2016-08-06 10:51 | disposition left against medical advice (07) ==
LOC: ED 21:27 → 3N 08-05 05:55 → SUATTDRO 08-05 05:55
PROVIDERS: ATTEND Emergency Medicine